=== PATIENT | male | born 1995 | race Caucasian/White ===

== ENCOUNTER 2016-06-21 18:18 | Emergency (ER) | payer OTHER ==
[2016-06-21 18:41] VITALS: BP 139/77; PULSE 80; RESP 15; TEMP 97.9; O2SAT 97
--- NOTE | 2016-06-21 19:13 | UCPHY ---
H & P Patient Type: New Chief Complaint Nursing Narrative: skiing yesterday, ran into tree branch. multiple abrasions to l side of face. denies loss of consciousness. states today feels queasy, fatigued and had difficulty concentrating in class HPI/ROS: CHIEF COMPLAINT: Head injury HISTORY OF PRESENT ILLNESS: The patient is a 21 year old male who presents with head injury after a ski accident yesterday. The patient was skiing through trees and hit a branch with his face. He was wearing a helmet and goggles. There was no LOC. The patient was evaluated by skin drier and told to look for concussion symptoms. Today the patient was trying to take notes in class and found it very difficult to focus. He had a hard time focusing on his laptop and phone. He denies headache. He had some nausea earlier today, no vomiting. Aside from facial abrasions, he denies other injuries. REVIEW OF SYSTEMS: A ten point review of systems was performed and is negative with the exception of the items mentioned in the HPI. Source: Patient - Medical/Surgical History Other PMH: denies - Family History Significant Family History: No pertinent family hx - Social History Smoking Status: Never smoked Alcohol Use: Occasionally Drug Use: Marijuana Additional Social History: [employer] student studying Neuroscience. - Physical Exam Exam: General Appearance: Alert. Vital signs reviewed. Head: Atraumatic. Face: Medial left zygoma and below left naris with superficial lacerations. No bony deformity. Eyes: Pupils equal and round, no conjunctival injection, no discharge. Anicteric. ENT, Mouth: Mucous membranes are moist, no oropharyngeal erythema or edema. Dentition intact. Neck: No lymphadenopathy, supple. Nontender over cervical spine in the midline. Respiratory: Lungs are clear to auscultation; no wheezes, rales, or rhonchi. Cardiovascular: Regular rate and rhythm; no murmur, rub, or gallop. Gastrointestinal: Abdomen is soft and nontender, no masses or organomegaly, bowel sounds normal. Skin: Warm and dry, no rashes on exposed skin, normal color. Back: Nontender to palpation over the thoracolumbar spine. No CVAT. Extremities: No lower extremity edema, no calf tenderness or swelling. Neurological: Alert and oriented. Moving all four extremities easily and equally. Cranial nerves II through XII are examined and are intact (visual acuity not tested). Strength is 5 over 5 bilaterally with testing of all major motor groups. Sensation is intact to light touch over all 4 extremities. Deep tendon reflexes are 2+ in the biceps and knees bilaterally. Gait is normal. [id number] is performed accurately. Psychiatric: Normal affect. Constitutional: Initial Vital Signs Temperature (C) 36.6 C 06/21/16 18:39 Heart Rate 80 06/21/16 18:39 Respiratory Rate 15 06/21/16 18:39 Blood Pressure 139/77 H 06/21/16 18:39 O2 Sat (%) 97 06/21/16 18:39 O2 Delivery Mode Room Air Allergies/Adverse Reactions: No Known Allergies Allergy (Unverified 06/21/16 18:38) Home Medications: Medication Instructions Recorded NK [No Known Home Meds] 06/21/16 Medical Decision Making ED Course/Re-evaluation: Presents with signs and symptoms of concussion after skiing accident yesterday in which a tree branch struck him in the face/head. Brain imaging not warranted, given GCS of 15 with normal neuro exam over 24 hours from event. I do not suspect ICH. He has no facial bone tenderness and I do not think he has a facial bone fracture. Neck is nontender and I am not worried about spinal cord or vertebral injury. Concussion info given and FU with Dr. Daly as needed. Departure - Departure Disposition: Home, Routine, Self-Care Clinical Impression: Concussion Condition: Good Instructions: Concussion (ED) Additional Instructions: The patient has been diagnosed with a concussion. Please excuse the patient from school work 06/21/16. You may experience irritability, nausea, headache, or confusion. Rest your brain when possible. Get plenty of sleep. Minimal screen time. Avoid situations with bright lights or loud noises. Avoid alcohol for the next week. Minimize exercise. If you begin to have difficulty with school or feel your symptoms have worsened , followup with the concussion specialist, Dr. Daly, whom you have been referred to. Referrals: Sayra Daly MD [Medical Doctor] - As per Instructions Stand Alone Forms: School Excuse - PQRS PQRS Measurement: Not applicable. Report Scribed for: Gavi Velasquez Report Scribed by: Carmelita Wells Date of Report: 06/21/16 Time of Report: 19:35 Physician Review and Approval Statement: 06/21/16 19:13 Portions of this note were transcribed by the medical equipment repair technician. I, Dr. Gavi Velasquez, personally performed the history, physical exam, and medical decision- making; and confirmed the accuracy of the information in the transcribed note.
== END 2016-06-21 20:10 | disposition home or self-care (01) ==
LOC: CED 18:18
DX: S06.0X9A Concussion with loss of consciousness of unspecified duration, initial encounter (principal); Y93.23 Activity, snow (alpine) (downhill) skiing, snowboarding, sledding, tobogganing and snow tubing; Y92.838 Other recreation area as the place of occurrence of the external cause; W22.8XXA Striking against or struck by other objects, initial encounter
CPT/HCPCS: G0463-PO